=== PATIENT | male | born 1995 | race Caucasian/White ===

== ENCOUNTER 2021-03-24 02:04 | Emergency (ER) | payer OTHER ==
[2021-03-24] MEDS ORDERED: PROVENTIL HFA6.7 GM INH (05:48)
[2021-03-24] MEDS ORDERED: OMNICEF 300 MG300 MG PO (05:48)
[2021-03-24] MEDS ORDERED: TESSALON PERLE100 MG PO (05:48)
[2021-03-24] MEDS ORDERED: ZYRTEC10 M3 PO (05:48)
== END 2021-03-24 06:35 | disposition home or self-care (01) ==
LOC: ER1 02:04
DX: R07.9 Chest pain, unspecified (principal); R05.9 Cough, unspecified
CPT/HCPCS: 71045; 93005; 99284

== ENCOUNTER 2021-05-07 01:43 | Emergency (ER) | payer OTHER ==
[~2021-05-07 01:43] MED LIST: OMNICEF 300 MG300 MG PO; PROVENTIL HFA6.7 GM INH; TESSALON PERLE100 MG PO; ZYRTEC10 M3 PO
[2021-05-07] MEDS ORDERED: PENVEE K 500 M500 MG PO (02:13)
[2021-05-07] MEDS ORDERED: LODINE CAP 300300 MG PO (02:13)
== END 2021-05-07 02:30 | disposition home or self-care (01) ==
LOC: ER1 01:43
DX: K03.81 Cracked tooth (principal); K02.9 Dental caries, unspecified; F17.290 Nicotine dependence, other tobacco product, uncomplicated
CPT/HCPCS: 96372; 99282; J1885